=== PATIENT | female | born 1945 | race Caucasian/White ===

== ENCOUNTER 2021-05-02 11:15 | Emergency (ER) | payer MEDICARE ==
[~2021-05-02] VITALS: Ht 170.2 cm; Wt 75.4 kg
[~2021-05-02 11:15] MED LIST: FLEC100T2 PO; LOP25T PO; LOSA25TA96 PO; OMEP40CA21 PO; PRAV10TA38 PO
[2021-05-02 11:23] VITALS: BP 144/47
[2021-05-02] MEDS ORDERED: PRED20TA PO (12:38)
== END 2021-05-02 13:16 | disposition home or self-care (01) ==
LOC: ER 11:16
DX: M79.675 Pain in left toe(s) (principal); I48.91 Unspecified atrial fibrillation; E78.00 Pure hypercholesterolemia, unspecified; I10 Essential (primary) hypertension; Z98.890 Other specified postprocedural states; Z79.899 Other long term (current) drug therapy
CPT/HCPCS: 73630; 99283

== ENCOUNTER 2021-05-13 15:33 | Emergency (ER) | payer MEDICARE ==
[~2021-05-13] VITALS: Ht 170.2 cm; Wt 73.5 kg
[2021-05-13] MEDS ORDERED: HYDROcodone/acetaminophen 10/325mg tab PO ONE (16:00)
[2021-05-13] MEDS ORDERED: methylPREDNISolone sod succ 125mg/2ml vial IM ONE (16:00)
[2021-05-13] MEDS ORDERED: METH4TAB81 PO (16:50)
[2021-05-13] MEDS ORDERED: HYDR-3972 PO (16:50)
--- NOTE | 2021-05-13 16:58 | NUR ---
PATIENT EVALUATED BY THELMA. DX: GOUT. RX MEDS GIVEN. PATIENT TOLLERATED WELL. DISCH TO HOME. PATIENT NOT DRIVING.
[2021-05-13 17:01] VITALS: BP 128/38
== END 2021-05-13 17:06 | disposition home or self-care (01) ==
LOC: ER 15:33
DX: M79.675 Pain in left toe(s) (principal); I48.91 Unspecified atrial fibrillation; E78.00 Pure hypercholesterolemia, unspecified; I10 Essential (primary) hypertension; Z98.890 Other specified postprocedural states; Z79.899 Other long term (current) drug therapy
CPT/HCPCS: 96372; 99283; J2930

== ENCOUNTER 2024-06-02 13:41 | Outpatient (CLI) | payer MEDICARE ==
[~2024-06-02 13:41] MED LIST changes: +LOSA-415 PO; -LOSA25TA96 PO; +METH4TAB81 PO
== END 2024-06-02 23:59 | disposition home or self-care (01) ==
LOC: RAD 13:41
PROVIDERS: ATTEND Internal Medicine
DX: Z12.11 Encounter for screening for malignant neoplasm of colon (principal); K63.5 Polyp of colon; R73.03 Prediabetes; M54.9 Dorsalgia, unspecified; M25.512 Pain in left shoulder
CPT/HCPCS: 72070; 73030